=== PATIENT | male | born 1950 ===

== ENCOUNTER 2018-10-23 10:51 | Outpatient (CLI) | payer OTHER ==
[~2018-10-23 10:51] MED LIST: AMILORIDE HCL5 MG PO; ASPIR 8181 MG PO; COZAAR100 MG PO; FINASTERIDE5 MG PO; ZOCOR40 MG PO; [UNRECOGNIZED DRUG - OTHER] PO
== END 2018-10-23 13:11 | disposition home or self-care (01) ==
LOC: LAB 10:51
DX: K64.4 Residual hemorrhoidal skin tags (principal); I10 Essential (primary) hypertension; Z80.0 Family history of malignant neoplasm of digestive organs; K64.2 Third degree hemorrhoids; Z01.812 Encounter for preprocedural laboratory examination

== ENCOUNTER 2018-10-25 10:48 | Day surgery (SDC) | payer OTHER | END 2018-10-25 19:30 | disposition home or self-care (01) | LOC: CIR.AMB 10:48 | DX: K64.8 Other hemorrhoids (principal); K64.4 Residual hemorrhoidal skin tags ==